=== PATIENT | male | born 1965 | race Caucasian/White ===

== ENCOUNTER 2024-08-26 14:11 | Emergency (ER) | payer OTHER, SELFPAY ==
[2024-08-26 14:15] VITALS: BP 145/72; PULSE 60; RESP 16; TEMP 36.2; O2SAT 98; BMI 29.2
--- NOTE | 2024-08-26 14:18 | DI.RAD.S_ITS ---
PROCEDURE: XR WRIST LT MIN 3V INDICATIONS: fall from step ladder FOOSH to L wrist TECHNIQUE: 4 views of the wrist were acquired. COMPARISON: None. FINDINGS: Bones: No fractures or dislocations. No suspicious bony lesions. Negative ulnar variance without a vascular necrosis of the lunate. Soft tissues: No suspicious soft tissue calcifications. IMPRESSION: No acute bony abnormality. Dictated by: Phil Ahmadi M.D. on 08/26/2024 at 14:42 Approved by: Phil Ahmadi M.D. on 08/26/2024 at 14:42
--- NOTE | 2024-08-26 16:37 | ED_ITS ---
<Statement entered by Antonio Messer DO - 08/26/24 16:55> Dr. Messer: I was immediately available in the department for consultation. I did not actually see the patient. HPI - Fall General Chief Complaint: Fall Stated Complaint: fall, lft wrist px, x3 days Time Seen by Provider: 08/26/24 15:19 History of Present Illness HPI Narrative: 58-year-old male presents to the ED status post a left wrist injury sustained 4 days prior to arrival. Patient was on a step ladder, slipped, used his left hand to break his fall, following which his left wrist has been painful. No numbness, tingling, weakness. Patient is on Brilinta. No head strike or loss of consciousness. Related Data Home Medications Medication Instructions Recorded Confirmed clotrimazole 1 % topical cream 1 gm topical ##0 06/08/16 06/28/23 naproxen 500 mg tablet (Naprosyn) 500 mg PO PRN ##0 06/08/16 06/28/23 valacyclovir 500 mg tablet 500 mg PO PRN ##0 06/08/16 06/28/23 Respironics Dreamstation CPAP #1 ea 12/06/18 06/28/23 Allergies Allergy/AdvReac Type Severity Reaction Status Date / Time hydrocodone [From VICODIN] AdvReac Severe SEVERE Unverified 06/28/23 10:36 NAUSEA BEE STINGS AdvReac Mild SWELLING Uncoded 06/28/23 10:36 AT SITE, RASH/ITCH, THROAT IRRITAION, SX 1 WEEK Review of Systems Constitutional Constitutional: Denies chills, Denies fatigue, Denies fever(s), Denies frequent falls, Denies lethargy and Denies weakness Eyes Eyes: Denies change in vision, Denies eye discharge, Denies irritation and Denies loss of vision ENT Ears, Nose, Mouth, and Throat: Denies change in voice, Denies dizziness, Denies neck pain, Denies sore throat and Denies throat swelling Cardiovascular Cardiovascular: Denies chest pain, Denies irregular heart rhythm, Denies lightheadedness, Denies palpitations, Denies dyspnea, Denies dyspnea on exertion and Denies orthopnea Respiratory Respiratory: Denies cough, Denies dyspnea, Denies dyspnea on exertion and Denies wheezing Gastrointestinal Gastrointestinal: Denies abdominal pain, Denies change in bowel habits, Denies diarrhea, Denies nausea and Denies vomiting Musculoskeletal Musculoskeletal: Denies neck pain and Denies numbness Comments: Left wrist swelling, pain Integumentary/Breasts Skin/Breast: Denies pruritus, Denies erythema, Denies rash and Denies wounds Neurologic Neurologic: Denies behavioral changes, Denies confusion, Denies dizziness, Denies frequent falls, Denies loss of vision, Denies numbness and Denies weakness Psychiatric Psychiatric: Denies anxiety, Denies behavioral changes, Denies confusion, Denies depression, Denies homicidal ideation and Denies suicidal ideation Endocrine Endocrine: Denies fatigue, Denies flushing and Denies palpitations Hematologic/Lymphatic Hematologic/Lymphatic: Denies easy bruising Allergic/Immunologic Allergic/Immunologic: Denies urticaria, Denies throat swelling and Denies wheezing Patient History Medical History History of multiple concussions History of fracture of arm History of fracture of right ankle Surgical History History of left inguinal hernia repair Social History marital status: details: lives in [place] household members: spouse lives independently: Yes caregiver/support person: No housing: house occupational status: employed Previous occupational history: [employer] leisure activities: other (motorcycle rider/racer) Smoking Status: Never smoker Smoking Status: Never smoker Exam Narrative Exam Narrative: Const General:?cooperative, healthy appearing and comfortable [facility] Head:?normal to inspection Ears:?hearing grossly normal bilaterally Nose:?external nose normal Face and sinus:?normal facial exam and sinuses nontender Mouth:?oral mucosae normal Throat:?posterior oropharynx normal Eyes General:?appearance normal, both eyes and all related structures Neck Neck:?normal visual inspection and no lymphadenopathy noted Resp Effort & Inspection:?normal respiratory effort Auscultation:?clear to auscultation bilaterally Cardio Rate:?regular rate Rhythm:?regular rhythm Musculoskeletal Left wrist is mildly swollen. No deformities. No tenderness to palpation. Full range of motion. Neurovascularly intact. Neuro General:?patient alert, patient awake and patient oriented x3 Initial Vital Signs Initial Vital Signs: Vital Signs Temperature 97.2 F L 08/26/24 14:15 Pulse Rate 60 08/26/24 14:15 Respiratory Rate 16 08/26/24 14:15 Blood Pressure 145/72 H 08/26/24 14:15 Pulse Oximetry 98 08/26/24 14:15 Oxygen Delivery Method Room Air 08/26/24 14:15 Course Orders Ordered: ED Orders 08/26/24 14:18 XR wrist LT min 3V Stat Vital Signs Vital signs: Vital Signs - 8 hr 08/26/24 14:15 Temperature 97.2 F L Pulse Rate 60 Respiratory Rate 16 Blood Pressure 145/72 H Pulse Oximetry 98 Oxygen Delivery Method Room Air MDM - Fall MDM Narrative Medical decision making narrative: 58-year-old male presents to the ED status post a left wrist injury sustained 4 days prior to arrival. X-ray was obtained which shows no acute fractures or dislocations. Patient's symptoms consistent with a musculoskeletal sprain/strain. Recommend Tylenol, heat packs, wrist brace, follow-up with PCP as soon as possible. ED return precautions discussed with patient. Patient verbalized understanding. Medical records reviewed: Yes Discharge Plan Departure Patient Disposition: Home Clinical Impression: Injury of wrist Qualifiers: Encounter type: initial encounter Laterality: left Qualified Code(s): S69.92XA - Unspecified injury of left wrist, hand and finger(s), initial encounter Instructions: DI for Wrist Sprain, How to Prevent Falls Activity Restrictions/Additional Instructions: You were evaluated in the ED today for a wrist injury. Your x-ray did not show any fractures or dislocations. Your symptoms are likely due to a musculoskeletal sprain/strain. You may take Tylenol, apply a wrist brace, apply heat. Please follow-up with your PCP as soon as possible. Return to the ED if you have worsening symptoms, numbness, tingling, weakness. Prescriptions: No Action valacyclovir 500 MG tablet 500 mg PO PRNQty: 0 clotrimazole 1 % cream 1 gm Topical Qty: 0 naproxen [Naprosyn] 500 MG tablet 500 mg PO PRNQty: 0 (DME) Respironics Dreamstation CPAP Qty: 1 Dose Instruction: As directed Patient Comments: Pressure: 8-14 cmH2O DME: [facility] Rx Instructions: As directed Referrals: Miscellaneous,Doctor, MD [Primary Care Provider] - Stand Alone Forms: Patient Portal/API/Survey
== END 2024-08-26 16:46 | disposition home or self-care (01) ==
PROVIDERS: Emergency Provider Student in an Organized Health Care Education/Training Program
DX: S69.92XA Unspecified injury of left wrist, hand and finger(s), initial encounter (principal); W01.0XXA Fall on same level from slipping, tripping and stumbling without subsequent striking against object, initial encounter
CPT/HCPCS: 73110; 99283